=== PATIENT | female | born 2005 | race Caucasian/White ===

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

== ENCOUNTER → 2023-02-26 | Day surgery (SDC) | payer MEDICAID ==
[2023-02-24 12:20] LABS: Basophils # (auto) 0 10 ^3/uL (0-0.2); Eosinophils # (auto) 0.2 10 ^3/uL (0-0.8); Monocytes # (auto) 0.9 10 ^3/uL (0-1.3); Red Blood Cells 4.61 10^6/uL (4.0-5.20)
[2023-02-24 12:22] LABS: Basophils % (auto) 0.4 % (0.0-2.0); Eosinophils % (auto) 2.3 % (0.0-7.0); Hematocrit 37.2 % (36.0-46.0); Hemoglobin 12.2 g/dL (12.2-16.2); Lymphocytes # (auto) 1.8 10 ^3/uL (0.4-5.4); Lymphocytes % (auto) 23.5 % (10.0-50.0); Mean Corpuscular Hemoglobin 26.5 pg (28.0-32.0); Mean Corpuscular Volume 80.5 fL (80.0-100.0); Monocytes % (auto) 11.4 % (0.0-12.0); Neutrophils # (auto) 4.7 10 ^3/uL (1.6-8.6); Neutrophils % (auto) 62.4 % (37.0-80.0); White Blood Cell 7.6 10^3/uL (4.4-10.8)
[2023-02-24 12:30] LABS: INR 1.03 (0.9-1.15); Partial Thromboplastin Time 30.4 sec (24.6-33.4)
[2023-02-24 12:52] LABS: Urine Bacteria FEW /hpf (None Seen); Urine Blood 1+ /uL (Negative); Urine Mucus FEW (None Seen); Urine Specific Gravity 1.032 (1.001-1.035); Urine WBC 2 /hpf (0 - 5)
[2023-02-24 14:20] LABS: Albumin 3.7 g/dL (3.4-5.0); BUN/Creatinine Ratio 10.4 (10.0-20.0); Bilirubin, Total 0.5 mg/dL (0.2-1.0); Calcium 8.6 mg/dL (8.5-10.1); Potassium 3.9 mmol/L (3.5-5.1); Total Protein 7.5 g/dL (6.4-8.2)
[~2023-02-26] VITALS: Ht 162.6 cm; Wt 97.5 kg
[~2023-02-26] MED LIST: LIDOCAINE 2% (LOCAL ANESTH.) PF 5ml SDV ONE; PROPOFOL 10 MG/ML 20 ML IV ONE
[2023-02-26 14:29] VITALS: BP 128/94
== END | disposition home or self-care (01) ==
LOC: GI 11:54
PROVIDERS: ATTEND Internal Medicine Gastroenterology
DX: K62.5 Hemorrhage of anus and rectum (principal); R10.13 Epigastric pain; K64.0 First degree hemorrhoids; K63.5 Polyp of colon; K44.9 Diaphragmatic hernia without obstruction or gangrene; K29.50 Unspecified chronic gastritis without bleeding
CPT/HCPCS: 36415; 43239; 45380; 80053; 81001; 81025; 85025; 85610; 85730; 88305; 88312; 88342; J2001; J2704; J7030